=== PATIENT | female | born 1995 | race African-American/Black ===

== ENCOUNTER 2016-11-28 02:17 | Emergency (ER) | payer OTHER ==
[2016-11-28 03:23] VITALS: BP 152/100; PULSE 81; TEMP 97.9; BMI 25.0
--- NOTE | 2016-11-28 03:33 | PDOC ---
History of Present Illness - General Chief Complaint: Vaginal Sxs Stated Complaint: POSSIBLE UTI Time Seen by Provider: 11/28/16 03:26 History Source: Patient Exam Limitations: No Limitations - History of Present Illness Initial Comments: 11/28/16 03:31 Patient is a 21 year-old female with h/o HTN c/o vaginal irritation since yesterday. States this feels like a pulling sensation the outside of her vagina , (+) itching (+) burning. states she's had prior episodes of the same last year January with her and was treat with antibiotics. She has been using the monistat cream since yesterday without any significant relief. States she has a discharge which is cortes, thin and smells fishy. States was formerly active with more than one partners but only sexually active with 1 partner and occasional condoms. denies STDs, fever, chill, dysuria pMD: Dr. Berg PMHX: neg PSOCHX: occ etoh, neg drug, neg Fam Hx: noncontributory ALL: NKDA GENERAL/CONSTITUTIONAL: [No fever or chills. No weakness. No weight change.] HEAD, EYES, EARS, NOSE AND THROAT: [No change in vision. No ear pain or discharge. No sore throat.] CARDIOVASCULAR: [No chest pain or shortness of breath.] RESPIRATORY: [No cough, wheezing, or hemoptysis.] GASTROINTESTINAL: [No nausea, vomiting, diarrhea or constipation. No rectal bleeding.] GENITOURINARY: [No dysuria, frequency, or change in urination.] MUSCULOSKELETAL: [No joint or muscle swelling or pain. No neck or back pain.] SKIN AND BREASTS: [No rash or easy bruising.] NEUROLOGIC: [No headache, vertigo, loss of consciousness, or loss of sensation.] PSYCHIATRIC: [No depression or anxiety.] ENDOCRINE: [No increased thirst. No abnormal weight change.] HEMATOLOGIC/LYMPHATIC: [No anemia, easy bleeding, or history of blood clots.] ALLERGIC/IMMUNOLOGIC: [No hives or skin allergy. No latex allergy.] GENERAL: [The patient is awake, alert, and fully oriented, in no acute distress. ] HEAD: [Normal with no signs of trauma.] EYES: [Pupils equal, round and reactive to light, extraocular movements intact, sclera anicteric, conjunctiva clear.] ENT: [Ears normal, nares patent, oropharynx clear without exudates. Moist mucous membranes.] NECK: [Normal range of motion, supple without lymphadenopathy, JVD, or masses.] LUNGS: [Breath sounds equal, clear to auscultation bilaterally. No wheezes, and no crackles.] HEART: [Regular rate and rhythm, normal S1 and S2 without murmur, rub.] ABDOMEN: [Soft, nontender, normoactive bowel sounds. No guarding, no rebound. No masses.] PELVIC: white cream in the vault and in the vagina. (monistat) EXTREMITIES: [Normal range of motion, no edema. No clubbing or cyanosis. No cords, erythema, or tenderness.] NEUROLOGICAL: [Cranial nerves II through XII grossly intact. Normal speech, normal gait.] PSYCH: [Normal mood, normal affect.] SKIN: [Warm, Dry, normal turgor, no rashes or lesions noted.] Past History - Past Medical History Allergies/Adverse Reactions: Allergies Allergy/AdvReac Type Severity Reaction Status Date / Time No Known Allergies Allergy Verified 11/28/16 03:21 Home Medications: Ambulatory Orders Hydrochlorothiazide [Hctz -] 12.5 mg PO DAILY 05/08/15 Metronidazole 0.75% Gel [Metrogel 0.75% Gel -] 1 applic TP DAILY #1 tube HTN: Yes Suicide Attempt (Hx): No - Reproductive History (#): 3 Para: 0 Cervical CA: No Dysfunctional Uterine Bleeding: No Ectopic : No Endometrial CA: No Polycystic Ovaries: No Therapeutic (s) & number: Yes (1) Tubal Ligation: No Spontaneous : 1 - Immunization History Immunization Up to Date: No - Psycho/Social/Smoking Cessation Hx Anxiety: No Suicidal Ideation: No Smoking Status: No Smoking History: Never smoked Have you smoked in the past 12 months: No Number of Cigarettes Smoked Daily: 0 Information on smoking cessation initiated: No Hx Alcohol Use: No Drug/Substance Use Hx: No Substance Use Type: None *Physical Exam - Vital Signs Last Vital Signs Temp Pulse Resp BP Pulse Ox 97.9 F 81 14 152/100 98 11/28/16 03:19 11/28/16 03:19 11/28/16 03:19 11/28/16 03:19 11/28/16 03:19 Medical Decision Making - Medical Decision Making 11/28/16 03:32 Patient is a 21 year-old female with h/o HTN c/o vaginal irritation since yesterday. States this feels like a pulling sensation the outside of her vagina , (+) itching (+) burning and a fishy discharge. Exam difficult because patient used monistat will discharge with flagy vaginal icon neg I discussed the physical exam findings, ancillary test results and final diagnoses with the patient. I answered all of the patient's questions. The patient was satisfied with the care received and felt comfortable with the discharge plan and treatment plan. The Patient agrees to follow up with the primary care physician within 24-72 hours. *DC/Admit/Observation/Transfer Diagnosis at time of Disposition: Bacterial vaginosis - Discharge Dispostion Disposition: HOME Condition at time of disposition: Stable - Prescriptions Prescriptions: Metronidazole 0.75% Gel [Metrogel 0.75% Gel -] 1 applic TP DAILY #1 tube - Referrals Referrals: Jerrod Mancia MD [Primary Care Provider] - - Patient Instructions Printed Discharge Instructions: DI for Bacterial Vaginosis Additional Instructions: Your Discharge Instructions: You must call primary care physician within 24 hours to arrange follow-up. Return to the Emergency Department with any new, persistent or worsening symptoms, for fever, chills, SOB, dizziness or any other concerning changes that may occur.
[2016-11-28 04:20] LABS: URINE APPEARANCE CLOUDY; URINE BILIRUBIN NEGATIVE (NEGATIVE); URINE BLOOD NEGATIVE (NEGATIVE); URINE COLOR LTYELLOW; URINE GLUCOSE (UA) NEGATIVE (NEGATIVE); URINE KETONE NEGATIVE (NEGATIVE); URINE NITRITE NEGATIVE (NEGATIVE); URINE UROBILINOGEN NEGATIVE E.U./dl (0.2-1.0)
[2016-11-28 04:30] LABS: URINE LEUK ESTERASE 2+ (NEGATIVE); URINE PROTEIN 1+ (NEGATIVE)
[2016-11-28 04:46] LABS: URINE BACTERIA RARE /hpf (NONE SEEN); URINE MUCUS RARE; URINE RBC 5 /hpf (0-3); URINE WBC 18 /hpf (3-5)
== END 2016-11-28 06:00 | disposition home or self-care (01) ==
LOC: JER 02:17
DX: N76.0 Acute vaginitis (principal); I10 Essential (primary) hypertension
CPT/HCPCS: 36415; 81003; 81015; 84703; 87086; 87491; 87591; 99282-25

== ENCOUNTER → 2017-05-17 | Emergency (ER) | payer OTHER ==
[2017-05-17 15:36] VITALS: TEMP 98.3; BMI 27.3
--- NOTE | 2017-05-17 16:59 | PDOC ---
History of Present Illness - General Chief Complaint: Vaginal Bleeding Stated Complaint: VAGINAL BLEEDING Time Seen by Provider: 05/17/17 16:00 - History of Present Illness Initial Comments: 05/17/17 16:59 21F w/ hx of 4 abortions (1 spontaneous and 3 therapeutic) presenting with persistent bleeding s/p most recent . Pt reports receiving medication for in late march and was told that the bleeding should have resolved within 3 weeks. Pt started bleeding right away and had contractions, but some bleeding persisted. On April 25, pt went to PMD, received an U/S showing a retained clot, was given pill contraception (sharobel 0.35mg qd). Pt reports passing the clot shortly after, but her bleeding persisted. Pt went to PMD 5 days ago for her bleeding problem and was told this was likely just due to hormonal effects of starting her new contraception. Pt was very nervous about persistent bleeding and came to ED to make sure there is nothing pathologic going on. She reports that her current bleeding is similar to that of her normal periods. menstrual hx: her periods are q28 days, last 5 days, and light. hx: She reports one miscarriage, 2 medical abortions, and 1 D&C. Past History - Past Medical History Allergies/Adverse Reactions: Allergies Allergy/AdvReac Type Severity Reaction Status Date / Time No Known Allergies Allergy Verified 05/17/17 15:36 Home Medications: Ambulatory Orders Hydrochlorothiazide [Hctz -] 12.5 mg PO DAILY 05/08/15 Lisinopril 10 mg PO DAILY 05/17/17 HTN: Yes Suicide Attempt (Hx): No Comment:: 05/17/17 17:08 HTN - Surgical History Comments:: 05/17/17 17:08 None - Family Disease History Comment:: 05/17/17 17:08 Mother- DM and thyroid problem father- HTN and HLD - Reproductive History (#): 3 Para: 0 Cervical CA: No Dysfunctional Uterine Bleeding: No Ectopic : No Endometrial CA: No Polycystic Ovaries: No Therapeutic (s) & number: Yes (1) Tubal Ligation: No Spontaneous : 1 - Immunization History Immunization Up to Date: No - Psycho/Social/Smoking Cessation Hx Anxiety: No Suicidal Ideation: No Smoking Status: No Smoking History: Never smoked Have you smoked in the past 12 months: No Number of Cigarettes Smoked Daily: 0 Information on smoking cessation initiated: No Hx Alcohol Use: Yes (socially) Drug/Substance Use Hx: No Substance Use Type: Alcohol Review of Systems - Review of Systems Comments:: 05/17/17 17:10 general: no fevers, chills, night sweats neuro: no headache, dizziness HEENT: no vision changes, no throat pain card: no chest pain, no palpitations resp: no SOB, no wheezing abd: no pain, no d/c/n/v extremities: no swelling, no rashes 05/17/17 19:25 Constitutional: Yes: Symptoms Reported *Physical Exam - Vital Signs Last Vital Signs Temp Pulse Resp BP Pulse Ox 98.3 F 76 16 132/88 100 05/17/17 15:28 05/17/17 15:28 05/17/17 15:28 05/17/17 15:28 05/17/17 15:28 - Physical Exam Comments: 05/17/17 17:12 General: young female, A&Ox3, in NAD Card: RRR, no m/r/g Pulm: CTAB, no wheezing, no rales Abd: soft, NT, ND, no organomegaly Extremities: no rashes, no swelling pelvic exam: blood pooling in vaginal vault, no clots visible ED Treatment Course - LABORATORY CBC & Chemistry Diagram: 05/17/17 18:10 Medical Decision Making - Medical Decision Making 05/17/17 17:14 21F w/ hx of 4 previous abortions presenting with vaginal bleeding s/p most recent and starting oral contraception. Possibly due to retained products of conception vs. oral contraception hormonal influences. -transvaginal U/S- shows no , but an adnexal cyst - test- negative -cbc- normal 05/17/17 19:24 *DC/Admit/Observation/Transfer Diagnosis at time of Disposition: Dysfunctional uterine bleeding - Discharge Dispostion Disposition: HOME Condition at time of disposition: Stable Admit: No - Referrals Referrals: Jerrod Mancia MD [Primary Care Provider] - - Patient Instructions Additional Instructions: The patient has no retained products of conception as shown on ultrasound. test was negative. Patient's complete blood count was normal. Her bleeding is most likely menstrual bleeding. If bleeding worsens or does not improve in 7 days, return to ED. - Attestations Physician Attestion: 05/17/17 17:17 I, Dr. Alex Childs, attest that this document has been prepared under my direction and personally reviewed by me in its entirety. I further attest, that it accurately reflects all work, treatment, procedures and medical decision -making performed by me.
--- NOTE | 2017-05-17 17:57 | PDOC ---
Attending Attestation - Resident Resident Name: Alex Childs - HPI HPI: 05/17/17 17:54 21-year-old female presents with vaginal bleeding and she is concerned that perhaps she has retained products from a previous miscarriage in April 11. She said that in March she "took pills. " to terminate the pregnaancy. Explained to the patient was she may simply be having her regular menses at this time. She did start control on April 25. PMH 4, para 03, abortions, one miscarriage, spontaneous miscarriage - Physicial Exam PE: 05/17/17 17:57 wnwd 21 yo female with vaginal bleeding neck supple lungs cta b/l cvs [id number] abd flat,nontender pelvic speculum exam-speculum filled with blood,no clots ,os closed neuro axox3,no gross focal neuro defcits - Medical Decision Making 05/17/17 18:04 preg test/cbc/ ultrsound 05/17/17 18:32 ultrasound shows NO IUP,no retained products , normal thickness of endometrial stripe .left ovarian cyst
[2017-05-17 18:44] LABS: MCH 26.7 pg (25.7-33.7); MCHC 31.8 g/dl (32.0-36.0); MEAN PLT VOLUME 9.8 fl (7.5-11.1); PLATELET COUNT 188 K/MM3 (134-434); WHITE BLOOD COUNT 5.3 K/mm3 (4.0-10.0)
[2017-05-17 19:56] VITALS: BP 153/97; PULSE 81
== END | disposition home or self-care (01) ==
LOC: JER 15:13
DX: N93.8 Other specified abnormal uterine and vaginal bleeding (principal); N83.202 Unspecified ovarian cyst, left side
CPT/HCPCS: 36415; 76830-TC; 84703; 85027; 99282-25

== ENCOUNTER 2021-01-07 01:04 | Inpatient (IN) | payer OTHER ==
[2021-01-07 01:53] VITALS: BMI 25.0
[2021-01-07 02:42] LABS: BASO % 0.9 % (0-2.0); EOS % 2.2 % (0-4.5); HEMATOCRIT 41.3 % (32.4-45.2); HEMOGLOBIN 13.3 GM/dL (10.7-15.3); LYMPH % 36.8 % (8-40); MCH 29.3 pg (25.7-33.7); MCHC 32.3 g/dl (32.0-36.0); MEAN CELL VOLUME 90.7 fl (80-96); MEAN PLT VOLUME 10.9 fl (7.5-11.1); MONO % 4.8 % (3.8-10.2); NEUT % 55.3 % (42.8-82.8); PLATELET COUNT 207 K/MM3 (134-434); RBC 4.55 M/mm3 (3.60-5.2); RDW 13.2 % (11.6-15.6); WHITE BLOOD COUNT 5.4 K/mm3 (4.0-10.0)
[2021-01-07 03:04] LABS: CHLORIDE 103 mmol/L (98-107); SODIUM 133 mmol/L (136-145)
[2021-01-07 03:06] LABS: CALCIUM 9.4 mg/dL (8.5-10.1)
[2021-01-07 03:07] LABS: ALBUMIN 4.1 g/dl (3.4-5.0); BLOOD UREA NITROGEN 13.3 mg/dL (7-18); CO2 28 mmol/L (21-32)
[2021-01-07 03:11] LABS: BILIRUBIN,TOTAL 0.4 mg/dL (0.2-1); CREATININE 1.2 mg/dL (0.55-1.3); SGOT/AST 67 U/L (15-37); TOT PROT 8.4 g/dl (6.4-8.2)
[2021-01-07 03:13] LABS: ALK PHOS 56 U/L (45-117); INR 0.99 (0.83-1.09); PROTHROMBIN TIME (PATIENT) 12.2 SEC (9.7-13.0)
[2021-01-07 03:16] LABS: ACTIVATED PTT 29.6 SECONDS (25.2-36.5)
[2021-01-07 03:51] LABS: ANION GAP 2 MMOL/L (8-16); GLUCOSE,RANDOM 98 mg/dL (74-106); SGPT/ALT 19 U/L (13-61)
[2021-01-07 05:11] LABS: ALBUMIN 3.6 g/dl (3.4-5.0); CALCIUM 8.9 mg/dL (8.5-10.1)
[2021-01-07 05:12] LABS: BLOOD UREA NITROGEN 13.8 mg/dL (7-18)
[2021-01-07 05:15] LABS: CREATININE 1.1 mg/dL (0.55-1.3)
[2021-01-07 05:16] LABS: BILIRUBIN,TOTAL 0.4 mg/dL (0.2-1); TOT PROT 7.1 g/dl (6.4-8.2)
[2021-01-07] MEDS ORDERED: ASPIRIN 81 MG CHEWABLE TABLETS PO ONE (06:10)
[2021-01-07 07:01] LABS: URINE APPEARANCE CLEAR; URINE BILIRUBIN NEGATIVE (NEGATIVE); URINE COLOR YELLOW; URINE GLUCOSE (UA) NEGATIVE (NEGATIVE); URINE KETONE NEGATIVE (NEGATIVE); URINE LEUK ESTERASE NEGATIVE (NEGATIVE); URINE NITRITE NEGATIVE (NEGATIVE); URINE PROTEIN NEGATIVE (NEGATIVE); URINE UROBILINOGEN 0.2 mg/dL (0.2-1.0)
[2021-01-07] MEDS ORDERED: HEPARIN NA (PORCINE) 5,000 UNITS/ML 1ML VIAL SQ SCH (10:00)
[2021-01-07] MEDS ORDERED: HYDROCHLOROTHIAZIDE 25 MG TABLET (FP) PO SCH (10:00)
[2021-01-07] MEDS ORDERED: FAMOTIDINE 20 MG TABLET PO SCH (10:00)
[2021-01-07] MEDS ORDERED: LISINOPRIL 20 MG TABLET PO SCH (10:00)
[2021-01-07] MEDS ORDERED: FAMOTIDINE 20 MG TABLET ONE (10:23)
[2021-01-07] MEDS ORDERED: HEPARIN NA (PORCINE) 5,000 UNITS/ML 1ML VIAL ONE (10:23)
[2021-01-07] MEDS ORDERED: LISINOPRIL 5 MG TABLET ONE (10:23)
[2021-01-07] MEDS ORDERED: HYDROCHLOROTHIAZIDE 25 MG TABLET (FP) ONE (10:23)
[2021-01-07 10:36] VITALS: TEMP 97.8
[2021-01-07 15:02] VITALS: BP 124/86; PULSE 58
[2021-01-07 16:07] LABS: BASO % 0.9 % (0-2.0); EOS % 2.1 % (0-4.5); HEMOGLOBIN 13.3 GM/dL (10.7-15.3); LYMPH % 25.5 % (8-40); MCH 29.3 pg (25.7-33.7); MCHC 32.4 g/dl (32.0-36.0); MEAN CELL VOLUME 90.3 fl (80-96); MEAN PLT VOLUME 9.9 fl (7.5-11.1); MONO % 6.5 % (3.8-10.2); PLATELET COUNT 192 K/MM3 (134-434); RBC 4.54 M/mm3 (3.60-5.2); RDW 13.2 % (11.6-15.6); WHITE BLOOD COUNT 5.1 K/mm3 (4.0-10.0)
[2021-01-07 16:24] LABS: CHLORIDE 104 mmol/L (98-107); SODIUM 141 mmol/L (136-145)
[2021-01-07 16:27] LABS: ALBUMIN 3.6 g/dl (3.4-5.0); ANION GAP 5 MMOL/L (8-16); BLOOD UREA NITROGEN 10.1 mg/dL (7-18); CALCIUM 9.3 mg/dL (8.5-10.1); CO2 32 mmol/L (21-32); GLUCOSE,RANDOM 81 mg/dL (74-106); MAGNESIUM 2.2 mg/dL (1.8-2.4)
[2021-01-07 16:30] LABS: CHOLESTEROL 127 mg/dL (50-200); PHOSPHOROUS 3.9 mg/dL (2.5-4.9); SGOT/AST 11 U/L (15-37); SGPT/ALT 13 U/L (13-61)
[2021-01-07 16:31] LABS: LDL CHOLESTEROL (ONLY SJRH) 65 mg/dL (5-100); TRIGLYCERIDES 82 mg/dL (0-150)
[2021-01-07 16:33] LABS: ALK PHOS 48 U/L (45-117); BILIRUBIN,TOTAL 0.9 mg/dL (0.2-1); HDL CHOLESTEROL 49 mg/dL (40-60); TOT PROT 7.1 g/dl (6.4-8.2)
[2021-01-08] MEDS ORDERED: ATENOLOL 25 MG TABLET (FP) PO SCH (10:00)
== END 2021-01-07 16:01 | disposition home or self-care (01) | DRG 203 ==
LOC: JER 01:04 → JERBED 05:09 → OBSVTOIN 06:14
PROVIDERS: ADMIT Internal Medicine; ATTEND Internal Medicine
DX: R07.89 Other chest pain (principal); I10 Essential (primary) hypertension; Z86.16 Personal history of COVID-19; R55 Syncope and collapse
CPT/HCPCS: 36415; 71046-TC-FY; 80053; 80061; 81003; 82550; 82553; 83721; 83735; 84100; 84443; 84484; 84703; 85025; 85610; 85730; 93005; 93010; 93306-TC; 99285-25; C9803; G0378; J1644; U0003

== ENCOUNTER 2022-12-18 15:16 | Emergency (ER) | payer OTHER ==
[2022-12-18 15:32] VITALS: BP 147/94; PULSE 86; RESP 18; TEMP 97.9; BMI 25.0
[2022-12-18] MEDS ORDERED: CEPHALEXIN MONOHYDRATE 500 MG CAPSULE (UD) PO ONE (16:12)
[2022-12-18] MEDS ORDERED: CEPHALEXIN MONOHYDRATE 500 MG CAPSULE (UD) ONE (16:24)
== END 2022-12-18 16:34 | disposition home or self-care (01) ==
LOC: JERFT 15:16
DX: N75.1 Abscess of Bartholin's gland (principal)
CPT/HCPCS: 87070; 87077; 87205; 99283-25

== ENCOUNTER 2023-09-08 00:09 | Emergency (ER) | payer OTHER ==
[2023-09-08 00:18] VITALS: BP 150/100; PULSE 91; RESP 18; TEMP 98.1; BMI 25.7
[2023-09-08 01:51] LABS: EOS % 1.7 % (0-4.5); HEMATOCRIT 34.1 % (32.4-45.2); LYMPH % 29.1 % (8-40); MCH 28.5 pg (25.7-33.7); MCHC 32.4 g/dl (32.0-36.0); MEAN PLT VOLUME 9.1 fl (7.5-11.1); MONO % 8.7 % (3.8-10.2); NEUT % 59.5 % (42.8-82.8); PLATELET COUNT 184 10^3/uL (134-434); RBC 3.87 M/mm3 (3.60-5.2); RDW 13.7 % (11.6-15.6); WHITE BLOOD COUNT 5.6 K/mm3 (4.0-10.0)
[2023-09-08 02:14] LABS: POTASSIUM 3.8 mmol/L (3.5-5.1)
[2023-09-08 02:16] LABS: CALCIUM 7.9 mg/dL (8.5-10.1)
[2023-09-08 02:17] LABS: ALBUMIN 3.2 g/dl (3.4-5.0); BLOOD UREA NITROGEN 14.1 mg/dL (7-18)
[2023-09-08 02:20] LABS: CREATININE 1.1 mg/dL (0.55-1.3)
[2023-09-08 02:21] LABS: TOT PROT 6.6 g/dl (6.4-8.2)
[2023-09-08 02:22] LABS: BILIRUBIN,TOTAL 0.3 mg/dL (0.2-1)
[2023-09-08 02:25] LABS: N-TERMINAL BNP 77.8 pg/ml (5-125)
== END 2023-09-08 03:29 | disposition home or self-care (01) ==
LOC: JER 00:09
DX: O12.00 Gestational edema, unspecified trimester (principal); O26.899 Other specified pregnancy related conditions, unspecified trimester; M25.471 Effusion, right ankle; M25.472 Effusion, left ankle; Z3A.00 Weeks of gestation of pregnancy not specified
CPT/HCPCS: 36415; 80053; 82550; 82553; 83880; 84703; 85025; 93005; 93010; 99284-25

== ENCOUNTER 2023-09-20 12:42 | Emergency (ER) | payer OTHER ==
[2023-09-20 12:53] VITALS: BP 117/80; PULSE 99; RESP 17; TEMP 97.8; BMI 25.0
[2023-09-20 14:31] LABS: BASO % 1.1 % (0-2.0); EOS % 0.5 % (0-4.5); HEMATOCRIT 35.4 % (32.4-45.2); HEMOGLOBIN 11.3 GM/dL (10.7-15.3); LYMPH % 23.4 % (8-40); MCH 27.9 pg (25.7-33.7); MCHC 31.9 g/dl (32.0-36.0); MEAN CELL VOLUME 87.5 fl (80-96); MEAN PLT VOLUME 8.5 fl (7.5-11.1); MONO % 7.7 % (3.8-10.2); NEUT % 67.3 % (42.8-82.8); PLATELET COUNT 261 10^3/uL (134-434); RBC 4.04 M/mm3 (3.60-5.2); RDW 13.6 % (11.6-15.6); WHITE BLOOD COUNT 4.8 K/mm3 (4.0-10.0)
[2023-09-20 14:50] LABS: POTASSIUM 4.3 mmol/L (3.5-5.1)
[2023-09-20 14:53] LABS: ALBUMIN 3.9 g/dl (3.4-5.0)
[2023-09-20 14:56] LABS: CREATININE 1.2 mg/dL (0.55-1.3)
[2023-09-20 14:58] LABS: BILIRUBIN,TOTAL 0.9 mg/dL (0.2-1); TOT PROT 7.5 g/dl (6.4-8.2)
[2023-09-20 15:03] LABS: CALCIUM 9.2 mg/dL (8.5-10.1)
[2023-09-20 15:36] LABS: EPI CELLS 11 /uL (0-25.1); HYALINE CASTS 0 /uL (0-3.1); URINE APPEARANCE CLEAR; URINE BACTERIA 387 /uL (0-1359); URINE BILIRUBIN NEGATIVE (NEGATIVE); URINE COLOR YELLOW; URINE GLUCOSE (UA) NEGATIVE (NEGATIVE); URINE KETONE NEGATIVE (NEGATIVE); URINE LEUK ESTERASE 1+ (NEGATIVE); URINE NITRITE NEGATIVE (NEGATIVE); URINE PROTEIN NEGATIVE (NEGATIVE); URINE RBC 26 /uL (0-23.9); URINE UROBILINOGEN 0.2 mg/dL (0.2-1.0); URINE WBC 52 /uL (0-25.8)
[2023-09-20 15:37] LABS: HCG,QUALITATIVE URINE Negative
== END 2023-09-20 16:47 | disposition home or self-care (01) ==
LOC: JER 12:42
DX: K62.5 Hemorrhage of anus and rectum (principal)
CPT/HCPCS: 36415; 80053; 81003; 82272; 84702; 84703; 85025; 86850; 86900; 86901; 87086; 99283-25